=== PATIENT | male | born 1995 | race Caucasian/White ===

== ENCOUNTER → 2021-01-30 09:29 | Outpatient (CLI) | payer BC, SELFPAY ==
--- NOTE | 2021-01-30 | IMM_PTH ---
PATIENT: BOYD VILLEGAS LOC: [facility] U#:[id number] AGE/SX: 30/M ROOM: RE01/30/[address]: Dr. Matt Arroyo MD : 1995 BED: DIS: SPEC #: [id number] RECD: 01/31/21 12:44 STATUS: CORWIN REQ #: [id number] EAMON: 01/30/21 00:[address]: Matt Arroyo DEPT: IMMUNOHISTOCHEMISTRY RECD BY: Jenna Vickers ENTERED: 01/31/21 12:47 SP TYPE: IMMUNO OTHR DR: No Primary Care Phys Tissues: Parotid gland, NOS Procedures: BCL-2 (add) BCL-6 (add) CD10 (add) CD138 (add) CD15 (add) CD20 (add) CD23 (add) CD3 (add) CD30 (add) CD43 (add) CD45 (add) CD5 (add) CD79A (add) CYCLIN (add) KAPPA (add) LAMBDA (add) P53 (add) MUM1 (add) Pankeratin (initial) PHYSICIAN & [address] [address] SPECIMEN INFORMATION: Tissue Source: FNA left parotid mass Clinical Info: Left parotid mass Specimen Number: [id number] CPT code: 88756, 23804 x18 METHODOLOGY: Deparaffinized sections of prefer/formalin-fixed tissue or PAP/DQ stained slides are incubated with monoclonal/polyclonal antibodies/oligonucleotide probes. Localization is made via biotin free immunoperoxidase method. Appropriate controls are performed and reacted as expected. Results on target cell population are indicated in the following table: RESULTS: ANTIBODY / CLONE RESULT AE1-3 (AE1/AE3/PCK26) negative CD3 (PS1) negative CD5 (SP10) negative CD10 (56C6) negative CD15 (MMA) negative CD20 (L26) negative CD23 (1B12) negative CD30 (Lennox-H2) negative CD43 (L60) positive CD45 (RP2/18) positive CD79a (11E3) positive CD138 (B-A38) negative BCL-2 (bcl-2/100/D5) negative BCL-6 (IZ841I/A8) negative Cyclin D1/BCL-1 (SP4) negative [place] (polyclonal) negative Lambda (polyclonal) negative MUM1 (MRQ-43) negative P53 (DO-7) negative These tests were developed and their performance characteristics determined by [facility]. They may not have been cleared or approved by the U.S. Food and Drug Administration. The FDA has determined that such clearance or approval is not necessary. The above immunohistochemical/dualISH markers are ordered and reviewed by the Pathologist. INTERPRETATION: Left parotid mass, fine needle aspiration: Consistent with B-cell lymphoproliferative disorder. AM:coleen 02/01/2021 Case has been reviewed in consultation with Dr. Blevins who concurs with the above diagnosis. IDC:SJ
--- NOTE | 2021-01-30 10:00 | ASPOS_PTH ---
PATIENT: BOYD VILLEGAS LOC: [facility] U#:[id number] AGE/SX: 30/M ROOM: RE01/30/[address]: Dr. Matt Arroyo MD : 1995 BED: DIS: SPEC #: [id number] RECD: 01/30/21 10:48 STATUS: CORWIN VINCENT #: [id number] EAMON: 01/30/21 10:[address]: Matt Arroyo DEPT: CYTOLOGY RECD BY: Sophie Rosales ENTERED: 01/30/21 10:49 SP TYPE: ASP HERE OTHR DR: No Primary Care Phys Tissues: Parotid gland, NOS Procedures: Surgery Specimen Level IV Cytology Other Fine Needle Asp on Site HEADER OPERATION: Fine needle aspiration left parotid mass PRE-OP DIAGNOSIS: Left parotid mass TISSUE SUBMITTED: FNA left parotid mass DIAGNOSIS CYTOLOGY Fine needle aspiration, left parotid mass (smears and cell block): Atypical lymphoproliferative disorder. See Comment. COMMENT The specimen is evaluated at the time of FNA by Dr. Byrne. Immediate Evaluation = Atypical lymphocytes present. Immunohistochemistry ([id number]) supports the above diagnosis. FLOW analysis revels a CD10 positive B-cell population with kappa expression. These findings are consistent with and atypical lymphoproliferative disorder. An excisional/incisional biopsy is recommended for definitive classification. Case has been reviewed in consultation with Dr. Blevins who concurs with the above diagnosis. IDC:SJ CYTOLOGY STUDY Slides are reviewed. CYTOLOGY GROSS Received is 0.2 ml of reddish-johnson fluid labeled with the patient's name, and designated left parotid mass. Two imprints and two paps are made from the submitted fluid and the rest is added to CytoLyt for cell block preparation. Submitted for cytology study. / AM:coleen 01/30/2021 TC:? CPT: 64723,54097,48415,03540.
== END ==
PROVIDERS: Referring Provider Otolaryngology; Visit Provider Otolaryngology
DX: D11.0 Benign neoplasm of parotid gland (principal)
CPT/HCPCS: 10021; 88161; 88305; 88341; 88342

== ENCOUNTER → 2021-07-26 16:41 | Outpatient (CLI) | payer BC, SELFPAY | DX: C82.90 Follicular lymphoma, unspecified, unspecified site (principal); D61.810 Antineoplastic chemotherapy induced pancytopenia; T45.1X5A Adverse effect of antineoplastic and immunosuppressive drugs, initial encounter; D84.821 Immunodeficiency due to drugs; Z79.899 Other long term (current) drug therapy | CPT/HCPCS: 86140 ==

== ENCOUNTER → 2022-08-29 | Outpatient (CLI) | payer BC, SELFPAY ==
--- NOTE | 2022-08-29 08:52 | RAD_ITS ---
STUDY: AIR-CONTRAST BARIUM SWALLOW REASON FOR EXAM: Male, 27 years old. Dysphagia, food getting stuck RADIATION DOSAGE (If Supplied By Facility): CTDIvol = ( ) mGy, DLP = ( ) mGycm. Individualized dose optimization techniques were used for this CT.? FLUOROSCOPY TIME (if supplied): ( 1:23 ) minutes/seconds TECHNIQUE: Air-contrast COMPARISON: None. FINDINGS: Swallowing was initiated normally. No nasopharyngeal reflux or aspiration. No Zenker''s diverticulum noted on the lateral view. Normal peristaltic activity in the proximal mid and distal esophagus. No evidence of a hiatal hernia but there was evidence of GE reflux. 13 mm barium pill passed through the esophagus without difficulty. RAD/Esophagus Dual Contrast IMPRESSION: GE reflux Electronically Signed: Mitch Alvarado MD at 10:00 EDT ,
== END | disposition home or self-care (01) ==
LOC: RAD 08:49
PROVIDERS: Referring Provider Otolaryngology; Visit Provider Otolaryngology
DX: R13.13 Dysphagia, pharyngeal phase (principal); K21.9 Gastro-esophageal reflux disease without esophagitis
CPT/HCPCS: 74220; 74221

== ENCOUNTER 2024-08-21 17:24 | Emergency (ER) | payer OTHER, SELFPAY ==
[2024-08-21 17:24] VITALS: BP 103/68; PULSE 124; RESP 16; TEMP 37.3; O2SAT 100; BMI 18.5
--- NOTE | 2024-08-21 18:00 | CT_ITS ---
STUDY: CT ABDOMEN AND PELVIS WITH CONTRAST REASON FOR EXAM: Male, 29 years old. fever, abdominal pain, colonoscopy today RADIATION DOSAGE (If Supplied By Facility): CTDIvol = ( 7.72 ) mGy, DLP = ( 283.41 ) mGycm TECHNIQUE: Transaxial images were obtained from the dome of the diaphragm to the symphysis pubis without oral contrast. IV 100mL Isovue-370 was administered. Sagittal and coronal images were reconstructed. Individualized dose optimization techniques were used for this CT. COMPARISON: None. FINDINGS: The visualized lung bases are unremarkable. The visualized portions of the heart are within normal limits. Normal liver. Normal gallbladder and extrahepatic biliary system. Normal spleen. Normal pancreas. Normal bilateral adrenal glands. Normal right kidney. Normal left kidney. Normal visualized stomach. Normal small intestine. Diffuse concentric thickening of the meadows of the proximal ascending colon, distal transverse colon, descending colon and rectosigmoid which appear hyperemic with minor stranding of fat consistent with clinical history of ulcerative colitis.. No evidence for acute appendicitis. Normal abdominal aorta. Normal inferior vena cava. Normal retroperitoneum. Incompletely distended thick walled bladder likely of no significance Normal abdominal wall. Normal osseous structures. CT/Abdomen/Pelvis W IV Cont ONLY IMPRESSION: Findings consistent with clinical history of ulcerative colitis with most severe involvement of the descending and rectosigmoid colon.. No evidence for pneumoperitoneum. There is no intravenous contrast accumulation within the colon to suggest site of acute intraluminal hemorrhage at this time.Radionuclide tagged red blood cell study would be helpful for more definitive evaluation if indicated Electronically Signed: Gerber Oquendo MD at 19:21 EDT ,
--- NOTE | 2024-08-21 18:01 | EX.ED.DYSGE1 ---
HPI History of Present Illness Chief Complaint: Abd Pain Detail of Chief Complaint: Fever and abdominal pain Informant: patient Narrative Narrative: Patient presents emergency department with complaint of abdominal pain and fever that started today. Patient states that he had a colonoscopy this morning at 11:[address] Patrica Childs. Patient had 3 polyps removed and a larger polyp that was left in place and he was advised to follow-up with [facility] to have removed. Patient went home and fell asleep and woke up at 5:00 and felt nauseated and had a fever up to 100 and comes in for evaluation. Patient also tells me that 4 days ago he developed a fever and headache and stayed home from work. He had a mild cough. Denies other sick contacts. Patient does have history of ulcerative colitis. [facility] Medical History (Updated 08/21/24 @ 20:[address] Goyo Aponte, DO) Acute sinusitis, unspecified Liver disease Cancer Home Medications ?Medication ?Instructions ?Recorded ?Last Taken ?Type ciprofloxacin 500 mg/5 mL oral 500 mg (5 mL) PO Q12H #100 mL 08/21/24 Unknown Rx suspension (Cipro) metronidazole 500 mg tablet 500 mg PO Q8H 10 days #30 tabs 08/21/24 Unknown Rx Allergy/AdvReac Type Severity Reaction Status Date / Time No Known Allergies Allergy Verified 08/21/24 17:24 Surgical History History of tonsillectomy and adenoidectomy Social History Smoking Status: Never smoker ROS ROS ED Review of Systems ROS Unobtainable: other Constitutional Constitutional ED: Reports fever(s) and lethargy; Denies chills, sweats or weight loss Eyes Eyes: Denies blurry vision, change in vision or diplopia ENT ENT ED: Denies rhinorrhea or sore throat Cardiovascular Cardiovascular: Denies chest pain, orthopnea or racing heartbeat Respiratory/Chest Respiratory/Chest: Reports cough; Denies dyspnea, dyspnea on exertion, orthopnea or sputum Gastrointestinal Gastrointestinal: Reports abdominal pain and nausea; Denies diarrhea or vomiting Genitourinary Genitourinary ED: Denies dysuria, hematuria or urinary frequency Musculoskeletal Musculoskeletal: Denies arthralgias, back pain, myalgias or neck pain Integumentary Denies abscess, Abrasions or rash Neurologic Neurologic: Denies headache(s) or weakness Psychiatric Psychiatric: Denies anxiety, depression or suicidal thoughts Endocrine Endocrinology: Denies polydipsia, polyphagia or polyuria Hematologic/Lymphatic Hematologic/Lymphatic: Denies easy bleeding, easy bruising or lymphadenopathy Allergic/Immunologic Allergic/Immunologic ED: Denies mouth swelling, tongue swelling or urticaria EXAM Physical Exam Const Vital Signs: 08/21/24 17:24 08/21/24 19:24 Temperature 99.2 F H 100.8 F H Temperature Source Oral Oral Pulse Rate 124 H 119 H Respiratory Rate 16 18 Blood Pressure 103/68 107/63 Blood Pressure Mean 79 77 Pulse Ox 100 97 Oxygen Delivery Method Room Air Room Air Positive well nourished and well developed General Appearance ED: well developed and NAD HEENT Reports TM's clear and moist mucous membranes normocephalic and atraumatic; Negative for trauma or tenderness Tympanic Membrane ED: Yes TM's clear Eyes PERRL and EOMs intact bilaterally General Eye ED: Negative for pale conjunctiva or scleral icterus Neck no lymphadenopathy, supple and no JVD General: Negative for tenderness Chest Wall inspection of chest normal and palpation of chest normal Chest: Negative for tenderness Resp normal respiratory effort and clear to auscultation bilaterally Effort and Inspection: Negative for respiratory distress or pain with movement Auscultation: Negative for rhonchi, wheezes or diminished lung sounds Cardio regular rate, regular rhythm, S1 normal heart sound, S2 normal heart sound and no murmurs Peripheral Pulses: pulses 2+ throughout GI normal to inspection, nondistended, normoactive bowel sounds, soft to palpation, non-distended and no masses GI Narrative: Mild diffuse tenderness to the lower abdomen. There is no rebound, rigidity, or peritoneal signs. No mass palpated. Back/Spine no CVA tenderness and no thoracic nor lumbar tenderness Extremity normal to inspection General Extremety ED: Negative for edema General Extremity: Negative for edema Neuro oriented x3, CN's II-XII intact bilaterally, no sensory deficits noted and gait normal Sensorium / Orientation: awake, alert, oriented to person, oriented to place and oriented to time Motor Exam: strength 5/5 throughout and strength abnormal Psych mental status grossly normal Skin no rashes or lesions noted and no wounds MDM MDM MDM Narrative Medical decision making narrative: Patient presents the emergency department with fever and some mild lower abdominal cramping after having colonoscopy today. Also notes that he had a low-grade fever 4 days ago and a headache. IV line established. CBC with differential for an elevated white count 12.8 with hemoglobin 11.7 platelet count of 252. Chemistries unremarkable. BUN 12 and creatinine 1.36. Urinalysis normal. CT scan of the abdomen pelvis obtained showed signs of ulcerative colitis of the descending colon. There was no evidence of bowel perforation or active bleeding. COVID flu and RSV testing was negative. I did discuss case with Dr. Cr who is on for gastroenterology. He recommended started patient on Cipro and Flagyl and have him follow-up with his primary care physician. Clinically patient looks well. I did give him a dose of Tylenol in the emergency department as well as a dose of Cipro and Flagyl. Patient discharged home stable condition. Lab Data Attestation: I reviewed the patient's lab results. Labs: Laboratory Results - last 24 hr 08/21/24 08/21/24 18:30 18:35 WBC 12.8 H RBC 6.46 H Hgb 11.7 L Hct 39.3 L MCV 60.8 L MCH 18.1 L MCHC 29.8 L RDW Std Deviation 34.8 L RDW Coeff of Vilma 18.4 H Plt Count 252 MPV TNP Immature Gran % (Auto) 0.400 Neut % (Auto) 87.7 H Lymph % (Auto) 4.0 L Crook % (Auto) 7.4 Eos % (Auto) 0.2 Baso % (Auto) 0.3 Absolute Neuts (auto) 11.2 H Absolute Lymphs (auto) 0.51 L Nucleated RBC % 0 Sodium 138 Potassium 3.6 Chloride 104 Carbon Dioxide 26.0 Anion Gap 8 BUN 12 Creatinine 1.36 H Estim Creat Clear Calc 66.33 Est GFR (MDRD) Af Amer 80 Est GFR (MDRD) Non-Af 66 BUN/Creatinine Ratio 8.8 L Glucose 108 H Calcium 9.3 Urine Color Yellow Urine Clarity Sl. Cloudy Urine pH 6.0 Ur Specific [place] 1.025 Urine Protein 30 H Urine Glucose (UA) Normal Urine Ketones 150 A* Urine Occult Blood Negative Urine Nitrite Negative Urine Bilirubin Negative Urine Urobilinogen 1 H Ur Leukocyte Esterase 25 H Urine RBC 0 SEEN Urine WBC 0-5 SEEN Ur Squamous Epith Cells 0-5 SEEN Urine Bacteria 0 SEEN Urine Mucus 0 SEEN Radiography Diagnostic Testing: Clinical Impression(s) from Imaging Studies Abdomen/Pelvis CT 08/21/24 18:00 IMPRESSION: Findings consistent with clinical history of ulcerative colitis with most severe involvement of the descending and rectosigmoid colon.. No evidence for pneumoperitoneum. There is no intravenous contrast accumulation within the colon to suggest site of acute intraluminal hemorrhage at this time.Radionuclide tagged red blood cell study would be helpful for more definitive evaluation if indicated Electronically Signed: Gerber Oquendo MD at 19:21 EDT , Discharge Plan Triage Chief Complaint: Abd Pain ED Provider: Goyo Aponte Dx/Rx/DC Orders Clinical Impression: Fever, History of ulcerative colitis Instructions: ED Understanding Colitis, ED FUO Adult, ED Abdominal Pain Unkn Cause Male... Prescriptions: New ciprofloxacin [Cipro] 500 mg/5 mL suspension,microcapsule recon 500 mg PO Q12H Qty: 100 0RF metronidazole 500 mg tablet 500 mg PO Q8H 10 Days Qty: 30 0RF Primary Care Provider: Care Physician,No Primary Referrals: Care Physician,No Primary [Primary Care Provider] - Activity Restrictions/Additional Instructions: Follow-up with your digital imager within the next 5 to 7 days Print Language: Portuguese Disposition Disposition: Home, Self Care
[2024-08-21 18:43] LABS: Bacteria 0 SEEN /hpf (None Seen); Mucous, Urine 0 SEEN /hpf (<or=2+); Red Blood Cells-Urine 0 SEEN /hpf (0-5)
[2024-08-21 18:47] LABS: Absolute Lymphocyte Count 0.51 X10^3/uL (0.83-4.51); Absolute Neutrophil Count 11.2 X10^3/uL (2.0-7.7); Basophil# 0.04 X10^3/uL; Basophil% 0.3 % (0-1); Eosinophil# 0.02 X10^3/uL; Eosinophils% 0.2 % (0-5); Hematocrit 39.3 % (40-54); Hemoglobin 11.7 g/dL (13.0-16.5); Lymphocyte # 0.51 X10^3/ul (0.83-4.51); Mean Corp Hgb Conc 29.8 g/dL (32-36); Mean Corpuscular Hgb 18.1 pg (27.0-32.0); Mean Corpuscular Volume 60.8 fL (80-94); Monocyte# 0.95 X10^3/uL; Monocyte% 7.4 % (0-10); NRBC Flagged by Analyzer 0 % (0-5); Neutrophil # 11.22 X10^3/uL (2.7-7.7); Neutrophil % 87.7 % (47-70); POSITIVE DIFFERENTIAL YES; Platelet Count 252 K/mm3 (150-450); RBC Distribution Width CV 18.4 % (11.6-14.6); RBC Distribution Width SD 34.8 fl (35.1-43.9); Red Blood Count 6.46 M/mm3 (4.6-6.2); White Blood Count 12.8 K/mm3 (4.4-11.0)
[2024-08-21 18:51] LABS: Color, Urine Yellow (Yellow); Glucose, Dipstick Normal (Normal); Leukocyte Esterase-Dipstick 25 /ul (Negative); Nitrite-Dipstick Negative (Negative); Occult Blood-Urine Negative /ul (Negative); Protein-Dipstick 30 mg/dl (Negative); Specific Gravity, Urine 1.025 (1.002-1.030); Urine Bilirubin Dipstick Negative (Negative); Urine Clarity Sl. Cloudy (Clear); Urine Urobilinogen 1 mg/dl (Normal)
[2024-08-21 19:02] LABS: Anion Gap 8 (5-15); BUN 12 mg/dL (7-18); BUN/Creat Ratio 8.8 RATIO (10-20); Calcium,Total 9.3 mg/dL (8.5-10.1); Chloride 104 mmol/L (98-107); Creatinine, Serum 1.36 mg/dL (0.70-1.30); EST Glomerular Filtration Rate 66 mL/min (>60); Est Glom Filt Rate - Afr Amer 80 mL/min (>60); Estimated Creatinine Clearance 66.33 ml/min; Glucose 108 mg/dL (74-106); Potassium 3.6 mmol/L (3.5-5.1); Sodium Level 138 mmol/L (136-145)
[2024-08-21 19:03] LABS: Differential Indicated SCAN CRITERIA MET
[2024-08-21 19:06] LABS: Ketone-Dipstick 150 mg/dl (Negative)
[2024-08-21 19:07] LABS: Squamous Epithelial Cells - UA 0-5 SEEN /hpf (0-5); White Blood Cells 0-5 SEEN /hpf (0-5)
[2024-08-21 19:24] VITALS: BP 107/63; PULSE 119; RESP 18; TEMP 38.2; O2SAT 97
[2024-08-21] MEDS: Acetaminophen 160 MG/5 ML UDC 650 MG PO (20:19)
[2024-08-21] MEDS: metroNIDAZOLE 500 MG Tablet PO (20:23)
[2024-08-21] MEDS: Ciprofloxacin 500 MG Tablet PO (20:23)
[2024-08-21 20:34] VITALS: BP 102/56; PULSE 119; RESP 14; TEMP 37.3; O2SAT 98
[2024-08-21 21:00] VITALS: BP 102/56; PULSE 29; RESP 131; TEMP 37.3
--- NOTE | 2024-08-22 08:47 | ED.RN ---
Per jay jay Zuniga to switch cipro from liquid to pill form.
== END 2024-08-21 21:19 | disposition home or self-care (01) ==
PROVIDERS: Emergency Provider Emergency Medicine; Visit Provider Emergency Medicine
DX: R50.9 Fever, unspecified (principal); R10.30 Lower abdominal pain, unspecified; R05.9 Cough, unspecified; Z87.19 Personal history of other diseases of the digestive system; Z98.890 Other specified postprocedural states
CPT/HCPCS: 74177; 80048; 81001; 85025; 87631; 99284; Q9967; A4216